=== PATIENT | female | born 1965 | race Caucasian/White ===

== ENCOUNTER 2020-09-18 12:29 | Inpatient (IN) | payer BC ==
[~2020-09-18] VITALS: Ht 170.2 cm; Wt 90.9 kg
[2020-09-18] VITALS (107 sets, daily range): BP systolic 104–116; BP diastolic 55–69; PULSE 99–105; TEMP 98–98.6; O2SAT 89–99
[2020-09-18 13:18] LABS: HEMATOCRIT 44.9 % (37.0-47.0); HEMOGLOBIN 15.1 g/dl (12.5-16.0); MEAN CELL VOLUME 85 fl (80.0-100.0); MEAN CORPUSCULAR HEMOGLOBIN 29 pg (27.0-31.0); MEAN CORPUSCULAR HGB CONC 34 g/dl (33.0-37.0); MEAN PLATELET VOLUME 10.1 fl (7.4-10.4); PLATELET COUNT 437 K/mm3 (130-400); RED BLOOD COUNT 5.26 M/mm3 (4.10-5.30); REDCELL DISTRIBUTION WIDTH-CV 12.8 % (11.5-14.5)
[2020-09-18 13:26] LABS: INR 1.2 (0.8-3.0); PROTHROMBIN TIME 13.4 SECONDS (9.7-12.8)
[2020-09-18 13:29] LABS: PARTIAL THROMBOPLASTIN TIME 32.3 SECONDS (26.0-37.0)
[2020-09-18 13:31] LABS: ALANINE AMINOTRANSFERASE 10 U/L (4-34); ALBUMIN 4.3 gm/dL (3.5-5.0); ALKALINE PHOSPHATASE 134 U/L (50-136); ANION GAP 28 mmol/L (7-16); AST,SGOT 16 U/L (15-37); BILIRUBIN,TOTAL 0.2 mg/dL (0.0-1.0); BLOOD UREA NITROGEN 22 mg/dL (7-17); CALCIUM 10.4 mg/dL (8.4-10.2); CHLORIDE 102 mmol/L (98-107); CREATININE, serum 0.85 (0.52-1.25); LIPASE 98 U/L (23-300); POTASSIUM 3.9 mmol/L (3.4-5.0); SODIUM 137 mmol/L (137-145); TOTAL PROTEIN 8.5 gm/dL (6.4-8.2)
[2020-09-18 13:42] LABS: TROPONIN-I < 0.012 ng/mL (0.000-0.035)
[2020-09-18 13:44] LABS: CARBON DIOXIDE 7 mmol/L (22-30); GLUCOSE 499 mg/dL (74-106)
[2020-09-18 13:47] LABS: LYMPHOCYTE 8 % (20.0-51.0); NEUTROPHILS 91 % (42.0-75.2)
[2020-09-18 13:48] LABS: PLATELET ESTIMATE INCREASED (NORMAL)
[2020-09-18] MEDS ORDERED: CEPHALEXIN500 M1 PO (14:53)
[2020-09-18 15:14] LABS: MAGNESIUM 2.7 mg/dL (1.6-2.3); PHOSPHOROUS 4.2 mg/dL (2.5-4.5)
[2020-09-18 17:28] LABS: CREATININE, serum 0.6 (0.52-1.25); POTASSIUM 3.5 mmol/L (3.4-5.0)
[2020-09-18 19:07] LABS: CREATININE, serum 0.57 (0.52-1.25)
[2020-09-18 21:29] LABS: CALCIUM 8.5 mg/dL (8.4-10.2); CREATININE, serum 0.49 (0.52-1.25); POTASSIUM 4.1 mmol/L (3.4-5.0)
[2020-09-18 23:48] LABS: CALCIUM 8.8 mg/dL (8.4-10.2); CREATININE, serum 0.53 (0.52-1.25); POTASSIUM 4.1 mmol/L (3.4-5.0)
[2020-09-19] VITALS (270 sets, daily range): BP systolic 109–124; BP diastolic 53–85; PULSE 74–94; TEMP 98–98.8; O2SAT 87–99
--- NOTE | 2020-09-19 00:26 | NUR ---
At 2100 the patient had a c02 level of 12 and at 2330 the C02 was 11. I informed Sima MCCAULEY. The patient's blood sugar was trending down; at 2120 it was 283. At 2220 BS was 247 and at 2320 BS was 235. The D5 fluids was started and Blood sugar jumped right back up to 280 at midnight. I called Sima MCCAULEY and asked what she'd like to do. She said we should increase the Insulin drip and keep the D5 fluids running, perhaps it will help with the C02. Per protocol; since it was a 45 point increase, it should increase the infusion by Delta 2 per rate change chart. The previous rate was 1 unit per hour. Per Protocol it will be increase to 2 units per hour.
--- NOTE | 2020-09-19 01:41 | NUR ---
Patient Blood sugar has jumped from 280 to 315 when started on the D5 IV fluids. I called Sima MCCAULEY and she reccomended I switch the fluids back to the NS with Potassium at a rate of 250 and Insulin back at 1 unit per hour.
[2020-09-19 01:58] LABS: CALCIUM 8.7 mg/dL (8.4-10.2); CREATININE, serum 0.51 (0.52-1.25); POTASSIUM 4.1 mmol/L (3.4-5.0)
[2020-09-19 03:05] LABS: CALCIUM 8.9 mg/dL (8.4-10.2); CREATININE, serum 0.53 (0.52-1.25); POTASSIUM 4.1 mmol/L (3.4-5.0)
--- NOTE | 2020-09-19 05:48 | NUR ---
Reviewed nursing orders with primary nurse. Will now titrate insulin gtt per order set.
[2020-09-19 06:28] LABS: CALCIUM 8.9 mg/dL (8.4-10.2); CREATININE, serum 0.44 (0.52-1.25); POTASSIUM 3.9 mmol/L (3.4-5.0)
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
[2020-09-19 07:37] LABS: BASO % 0.3 % (0.0-2.0); EOS % 0.2 % (0-4.0); GRAN # 6.3 (1.4-6.5); GRAN % 68.6 % (42.2-75.2); LYMPH # 1.3 (1.2-3.4); LYMPH % 14.2 % (20.0-51.0); MEAN CELL VOLUME 85 fl (80.0-100.0); MEAN CORPUSCULAR HGB CONC 34 g/dl (33.0-37.0); MEAN PLATELET VOLUME 10.4 fl (7.4-10.4); MONO # 1.4 (0.1-0.6); MONO % 15.5 % (1.7-9.3); PLATELET COUNT 363 K/mm3 (130-400); RED BLOOD COUNT 3.98 M/mm3 (4.10-5.30); REDCELL DISTRIBUTION WIDTH-CV 13.2 % (11.5-14.5)
[2020-09-19 07:42] LABS: CALCIUM 8.6 mg/dL (8.4-10.2); CREATININE, serum 0.48 (0.52-1.25)
[2020-09-19 07:46] LABS: HEMATOCRIT 33.9 % (37.0-47.0); HEMOGLOBIN 11.4 g/dl (12.5-16.0); MEAN CORPUSCULAR HEMOGLOBIN 29 pg (27.0-31.0)
--- NOTE | 2020-09-19 07:55 | NUR ---
Will continue to titrate insulin drip per protocol.
--- NOTE | 2020-09-19 09:18 | NUR ---
DR BRYANT AT BEDSIDE FOR ASSESSMENT. DISCUSSED INSULIN GTT AND POC ABOUT ULTRASSOUND FOR ABCESS. EXPLAINED TO PHYSICIAN THAT PT IS CONCERNED ABOUT DRAINING ABCESS AND HAS QUESTIONS.
[2020-09-19 11:14] LABS: CALCIUM 9.1 mg/dL (8.4-10.2); CREATININE, serum 0.44 (0.52-1.25); POTASSIUM 3.7 mmol/L (3.4-5.0)
--- NOTE | 2020-09-19 15:11 | NUR ---
Behavioral Health Case Manager met with patient to discuss discharge planning. Per H&P, patient's about seven years ago and she has severe anxiety/PTSD. Psych consult pending. Patient reports she lives alone in [place] and does not currently have a primary care physician. Patient states she is working on scheduling a "meet and greet" with either Dr. Dalton or Dr. Potts. SW asked patient if a follow up appointment/new patient could be set up for her upon discharge and patient states she wants to meet the physician first before getting set up with an appointment. Patient uses [facility] for medications and when asked if she can afford her medications patient states she claimed bankruptcy in 1989 due to isses with [employer]. Patient states cost of medications and health care cause her great anxiety. Patient has diabetes and per H&P patient has not been compliant with her medications. Patient does not use any DME and is normally independent with [facility], however reports she has been having more difficulty getting around at home. Patient states she may need to stay with her father, Domo (ph#[phone]) upon discharge for a short time for additional support. Patient does not have DPOA-HC and advised she may want to complete DPOA-HC while here. SW will continue to follow up. Patient is and has no children. Patient's mother is and her legal next of kin is her father, Domo. ADAIR spoke with Hospitalist about ordering PT/OT for patient. ADAIR contacted patient's father, Domo who advised he did not have any questions or concerns at this time, but advised patient is scheduled for her second COVID vaccine on . Domo states he is on the way to the hospital now to visit patient. ADAIR collaborated with VANESSA Amaro who advised patient will likely be able to return home upon discharge, but may benefit from a front wheeled walker and home health services. ADAIR spoke with RNEmiliana who advised patient may be open to services but is anxious about the potential cost. Discharge Plan: Home vs Home with father.
--- NOTE | 2020-09-19 15:32 | NUR ---
DR NOEL PSYCH AT BEDSIDE
--- NOTE | 2020-09-19 16:30 | NUR ---
REPROT GIVEN TO ADRIANA ELMORE. PT TO [facility] VIA WC TO 323. ALL PERSONAL BELONGINGS SENT WITH PT.
--- NOTE | 2020-09-19 17:13 | NUR ---
Pt has arrived to the floor. She is alert and oriented. When being assisted to the bed she was unsteady on her feet. Pt is high fall risk, in yellow gown and bed alarm on. Oriented pt to the room and educated on room service. Assisted her in ordering a dinner tray at this time. Pt denied any other needs, will continue to monitor
--- NOTE | 2020-09-19 20:40 | NUR ---
PT A/O x3, has pain on right side, Pt states that it is from lying on that side for too long, since she cannot lay on her back. Pt very tearful and appolgetic. Pt given Tramadol for pain and Xanax for anxiety. Pt got up from bed and assisted into chair. Pt has no further needs at this time, call light within reach, and chair alarm on.
[2020-09-20] VITALS (7 sets, daily range): BP systolic 115–144; BP diastolic 52–73; PULSE 75–90; TEMP 97.7–98.7
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
[2020-09-20 07:55] LABS: BASO % 0.6 % (0.0-2.0); EOS # 0.1 (0.0-0.7); EOS % 1.9 % (0-4.0); GRAN % 45.6 % (42.2-75.2); HEMOGLOBIN 11.5 g/dl (12.5-16.0); LYMPH # 2.3 (1.2-3.4); LYMPH % 34.9 % (20.0-51.0); MEAN CELL VOLUME 83 fl (80.0-100.0); MEAN CORPUSCULAR HEMOGLOBIN 29 pg (27.0-31.0); MEAN CORPUSCULAR HGB CONC 35 g/dl (33.0-37.0); MEAN PLATELET VOLUME 10.7 fl (7.4-10.4); MONO % 15.9 % (1.7-9.3); PLATELET COUNT 372 K/mm3 (130-400); REDCELL DISTRIBUTION WIDTH-CV 13.3 % (11.5-14.5)
[2020-09-20 07:59] LABS: HEMATOCRIT 33.3 % (37.0-47.0)
[2020-09-20 08:05] LABS: CALCIUM 8.7 mg/dL (8.4-10.2); CREATININE, serum 0.42 (0.52-1.25)
[2020-09-20 08:06] LABS: POTASSIUM 2.9 mmol/L (3.4-5.0)
--- NOTE | 2020-09-20 09:13 | NUR ---
Pt has worked with PT and OT. She did well and reports that she feels much better. Offered to assist her with a shower and she stated that she did not want one at this time. Offered the bath wipes and shower cap. She stated that I could bring it to the room and she would think about it. No other needs verbalized, call light within reach, will continue to monitor
--- NOTE | 2020-09-20 09:50 | NUR ---
SW met with the patient to review d/c plan and to follow up on therapy's recommendation for a FWW. The patient states that she plans on returning back to her home upon discharge. She states that she has a friend that will be checking in on her and helping with her wound care. The patient states that she would be interested in getting a FWW and is agreeable to get it from [facility]. SW discussed home health services, but how they require having a PCP or getting established with one. The patient states that she is not interested in home health at this time. She was interested in obtaining a list of agencies, if case she would like services in the future. SW provided the patient with Medicare.[employer]'s list of home health agencies that serve [place]. The patient states that she would like to and plans on contacting primary care clinics this week to get established with a PCP. SW to contact and send the FWW order to [facility].
--- NOTE | 2020-09-20 11:56 | NUR ---
ADAIR contacted and faxed the FWW order to Mayi at [facility]. Awaiting delivery.
--- NOTE | 2020-09-20 12:30 | NUR ---
Pt blood sugar prior to lunch was higher than what is was the past few times, pt started to have anxiety attack over this. She became very nervous regarding her BS, discussed with her that it will take some time and education before her sugars are in control. PRN given for the anxiety. Dr Zhu in to see patient, new orders wrote.
--- NOTE | 2020-09-20 16:00 | NUR ---
Pt has rested off and on today. She continues to be more steady on her feet. Her father has been with her this afternoon. Minimal pain complaints, she does state that her stomach is burning some. IV in her hand infiltrated. Attempted new IV with no success. Notified boiler house operator and charge nurse.
--- NOTE | 2020-09-20 18:30 | NUR ---
3 more attempts for IV, anesthesia notified. Report given
--- NOTE | 2020-09-20 20:00 | NUR ---
Pt. sitting up in bed. Pt. is A&OX3, assessment complete. INT to rt. hand started by anesthesia. Pt. reports pain at a 5 on pain scale to back, Pt. requests pain meds with evening meds. Pt. denies further needs, call light within reach.
[2020-09-21 04:06] VITALS: BP 119/59; PULSE 71; TEMP 98
[2020-09-21 07:39] VITALS: BP 135/71; PULSE 74; TEMP 98.3
--- NOTE | 2020-09-21 10:48 | NUR ---
DR SONG IN TO SEE PT THIS AM. PLAN ON DISCHARGE LATER TODAY. PT IS A/O X3 VSS ASSESSMENTS COMPLETE WNL. PT DENIES PAIN AT THIS TIME. DRESSING TO MIDDLE BACK WITH SEROSANGUINOUS DRAINAGE. DRESSING AND WOUND CARE PRN.
[2020-09-21] MEDS ORDERED: LEVEMIR FLEX100 U/ML SQ (11:00)
[2020-09-21] MEDS ORDERED: ULTRAM 50MG TAB50 MG PO (11:00)
[2020-09-21] MEDS ORDERED: NOVOLOG FLEX100 U/ML SQ ×3 (11:01→11:58)
[2020-09-21] MEDS ORDERED: CELEXA10 MG PO (11:03)
[2020-09-21] MEDS ORDERED: XANAX .25M0.25 MG/TA PO (11:03)
[2020-09-21] MEDS ORDERED: PROTONIX20 MG PO (11:03)
[2020-09-21] MEDS ORDERED: FREESTYLE PREC1 EAC5 MC (11:04)
[2020-09-21] MEDS ORDERED: GLUCOSE TEST ST1 DEV MC (11:04)
[2020-09-21] MEDS ORDERED: BD ALCOHOL1 SWA TOP (11:05)
[2020-09-21] MEDS ORDERED: THE MEDICINE SH1 DE3 MC (11:05)
[2020-09-21] MEDS ORDERED: LANCETS MC (11:06)
[2020-09-21] MEDS ORDERED: GLUCOPHAGE500 MG/TAB PO (11:07)
[2020-09-21 12:03] VITALS: BP 129/64; PULSE 80; TEMP 98.4
--- NOTE | 2020-09-21 14:42 | NUR ---
CHELY delivered the FWW to the patient's room. ADAIR attended clinical rounds. The patient is ready to d/c today, 09/21. The hospitalist discussed again getting set up with a PCP before she leaves here. The patient states that she has spoken to [facility] and would be open to getting set up with SANDRA Hancock there. ADAIR contacted Komal at [facility]. Komal reports that Euegnia has not approved the patient yet and that she would need to check with Eugenia when she returned to the office this afternoon. ADAIR updated the patient. ADAIR then received a phone call from the loading unit operator crimping. The patient had informed her that she would also be interested in Dr. Niki Martinez at [facility]. The loading unit operator crimping faxed the patient's information to [facility] and they will contact the patient to inform if Dr. Martinez has accepted the patient or not and to set up an appointment. ADAIR then received a phone call from Komal at [facility]. Komal reports that Eugenia Guy did accept the patient and that they could make an appointment for her next week. ADAIR updated the patient. The patient reports that she would prefer Dr. Martinez, but was open to getting an appointment made with Eugenia Guy, in case Dr. Martinez does not accept. ADAIR secured the patient an appointment with Eugenia Guy on Saturday, 09/28, at 1300, arrive at 1230. ADAIR informed the patient and the loading unit operator crimping of the appointment. ADAIR also obtained the patient's prescription ID and provided it to the patient's preferred pharmacy, [facility], to delaney the patient's meds. The pharmacist reports that they have 6 out of the 11 meds ready. The most expensive meds are the insulin. The total cost of the two insulins is $147.00. The rest of the meds are on the $3.00 list. ADAIR informed the patient. The patient reports that she will be able to afford and pay for her meds today. The patient's father plans to machine pecan picker the patient's meds and bring them here, so that the patient's RN can provide her with some education and teachings with the insulin. ADAIR also discussed home health and it's benefits again, but how they would not be able to see her until she has her appointment with the PCP. The patient was open to getting home health services and chose [facility]. ADAIR contacted and faxed a referral to Rosamaria at [facility]. Rosamaria confirms that they will need to know which provider the patient ends up establishing care with, before they can start services. Rosamaria states that she will call the patient to follow up on this. ADAIR updated the patient and faxed the patient's d/c orders to Rosamaria at [facility]. The patient is to discharge today, 09/21, with home health services for mcc/PT/OT from [facility]. No additional needs at this time.
--- NOTE | 2020-09-21 16:46 | NUR ---
DISCHARGE INSTRUCTIONS REVIEWED WITH PATIENT. DIABETIC TEACHING BEGAN. INSULIN INSTRUCTIONS GIVEN. PT LEFT VIA WHEEL S
== END 2020-09-21 16:15 | disposition home health service (06) | DRG 638 ==
LOC: COL.ER 12:29 → ICU 13:58 → SURG 13:58 → ICU 14:18 → SURG 09-19 17:00
PROVIDERS: Emergency Medicine; Hospitalist; ADMIT Internal Medicine
DX: E11.10 Type 2 diabetes mellitus with ketoacidosis without coma (principal); L03.312 Cellulitis of back [any part except buttock and flank]; K21.9 Gastro-esophageal reflux disease without esophagitis; E87.6 Hypokalemia; F43.10 Post-traumatic stress disorder, unspecified; R53.81 Other malaise; D17.1 Benign lipomatous neoplasm of skin and subcutaneous tissue of trunk; Z91.128 Patient's intentional underdosing of medication regimen for other reason; T38.3X6A Underdosing of insulin and oral hypoglycemic [antidiabetic] drugs, initial encounter; F41.1 Generalized anxiety disorder; B95.61 Methicillin susceptible Staphylococcus aureus infection as the cause of diseases classified elsewhere; Z63.4 Disappearance and death of family member; Z66 Do not resuscitate; M79.7 Fibromyalgia; Z20.822 Contact with and (suspected) exposure to COVID-19; M54.5 Low back pain; Z56.0 Unemployment, unspecified
CPT/HCPCS: 99223-AI; 99232-AI; 99233-AI; 99239; J0696; J1650; J1815; J2060; J2270; J2405; J3480; J7030; J7120

== ENCOUNTER → 2020-09-23 | Outpatient (CLI) | payer BC ==
[~2020-09-23] MED LIST: BD ALCOHOL1 SWA TOP; CELEXA10 MG PO; CEPHALEXIN500 M1 PO; FREESTYLE PREC1 EAC5 MC; GLUCOPHAGE500 MG/TAB PO; GLUCOSE TEST ST1 DEV MC; LANCETS MC; LEVEMIR FLEX100 U/ML SQ; NOVOLOG FLEX100 U/ML SQ; PROTONIX20 MG PO; THE MEDICINE SH1 DE3 MC; ULTRAM 50MG TAB50 MG PO; XANAX .25M0.25 MG/TA PO
== END ==
LOC: ZCOL.LAB 16:22
DX: T21.34XA Burn of third degree of lower back, initial encounter (principal)

== ENCOUNTER 2022-09-21 10:47 | Emergency (ER) | payer BC ==
[~2022-09-21] VITALS: Ht 170.2 cm; Wt 95.5 kg
[2022-09-21 11:10] VITALS: TEMP 98.3
--- NOTE | 2022-09-21 14:38 | NUR ---
SW contacted by patients Rn that the patient is wanting established with home health. SW met with patient at bedside. She lives at home alone and verbalizes that due to her vitamin D deficiency she is not able to utilize crutches, but is willing to rent a wheelchair. Her father Domo is present at bedside and is willing to get the patient a toilet riser. Educated patient that she will need to follow up with her PCP to establish HH and MCR.giv list of hh agencies provided to the patient.
[2022-09-21] MEDS ORDERED: ULTRAM 50MG TAB50 MG PO (16:19)
[2022-09-21] MEDS ORDERED: ZOFRAN ODT4 MG PO (16:19)
[2022-09-21 17:20] VITALS: BP 163/76; PULSE 91
== END 2022-09-21 17:20 | disposition home or self-care (01) ==
LOC: COL.ER 10:47
DX: S82.851A Displaced trimalleolar fracture of right lower leg, initial encounter for closed fracture (principal); R11.0 Nausea; W01.0XXA Fall on same level from slipping, tripping and stumbling without subsequent striking against object, initial encounter; X50.1XXA Overexertion from prolonged static or awkward postures, initial encounter
CPT/HCPCS: J2405; J2704; J3010